=== PATIENT | male | born 1965 | race Caucasian/White ===

== ENCOUNTER 2018-09-11 17:41 | Inpatient (IN) ==
[~2018-09-11 17:41] MED LIST: ETOMIDATE 2 MG/ML 20 ML VIAL IV ONE; RAPID SEQUENCE INDUCTION BAG ONE; SUCCINYLCHOLINE CHLORIDE 20 MG/ML 10 ML VIAL IV ONE; VECURONIUM BROMIDE 10 MG VIAL IV ONE
[2018-09-11] MEDS ORDERED: SODIUM CHLORIDE 0.9% 500 ML IV SCH (17:45)
[2018-09-11] MEDS ORDERED: PROPOFOL IV EMULSION 10 MG/ML 20 ML VIAL IV ONE (17:47)
--- NOTE | 2018-09-11 17:56 | XRay Report ---
XR chest 1V portable CLINICAL HISTORY: Atypical chest pain COMPARISON STUDY: No previous studies for comparison. FINDINGS: The heart is borderline enlarged. There is no failure. There is no focal pulmonary consolid ation. There are no pleural effusions. Increased basilar markings are likely atelectatic[ IMPRESSION: No active disease in the chest. Electronically signed by: Bryan Caro M.D. 09/11/2018 5:55 PM
--- NOTE | 2018-09-11 18:26 | Emergency Department Note ---
Entered by Caitie Ramsey acting as a scribe for Matthew Feliciano DO History of Present Illness General Chief complaint: Arrhythmia/Palpitations Stated complaint: TACHYCARDIA Source: patient and EMS Mode of arrival: EMS History of Present Illness Onset (ago): hour(s) 3 Location: chest Pain Consistency: + other (episode ) Quality: + other (fluttering ) Relieved By: not by medication (150 and 300 dose of Amiodarone) and not by other (450ml fluid ) Treatments prior to arrival: other (450ml of fluid, 150 and 300 ml of Amiodarone ) The patient is a 53 year old male who presents to the ED via EMS with complaints of an episode of heart arrhythmia 3 hours prior to arrival. The patient states that his heart feels like it is fluttering very fast in his chest. The patient states that he was in the group home yard at 1430 when he first started noticing his heart was racing. The patient claims that he has had an EKG done before on his heart but is unsure of the results. The patient states that he has never had a cardiac catheterization or stress test done. The patient claims he used to be a heavy smoker and vape user but has since quit. The EMS report that the patient was given 400 ml of fluid and a 150 and a 300 dose of Amiodarone. 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 Home Medications Home Medications Medication Instructions Recorded Confirmed Type acetaminophen [Tylenol Extra 500 mg PO TID PRN 09/11/18 09/11/18 History Strength] albuterol sulfate 2 puff INHALATION TID PRN 09/11/18 09/11/18 History diclofenac sodium 75 mg PO BID 09/11/18 09/11/18 History furosemide [Lasix] 20 mg PO DAILY 09/11/18 09/11/18 History lisinopril 5 mg PO DAILY 09/11/18 09/11/18 History mirtazapine 30 mg PO HS 09/11/18 09/11/18 History nortriptyline 75 mg PO BID 09/11/18 09/11/18 History pravastatin 80 mg PO HS 09/11/18 09/11/18 History quetiapine 200 mg PO HS 09/11/18 09/11/18 History theophylline 450 mg PO BID 09/11/18 09/11/18 History warfarin [Coumadin] 7.5 mg PO HS 09/11/18 09/11/18 History Allergies Allergy/AdvReac Type Severity Reaction Status Date / Time No Known Allergies Allergy Unverified 09/11/18 19:24 Past Med/Surg History Medical History No known health problems Family History Other No significant family history Social History Preferred Language: Welsh Communication Ability: Effective [employer] Delivery Required: No Beliefs That Will Affect Care: None Current Living Situation: Other Current Living Situation Comment: [facility] inmate. Other Information That Helps Us Care for You: No Feels Safe at Home: Yes Safety Concerns: Feels Safe At This Time Smoking Status: Current every day smoker Tobacco Type: cigarettes and e- cigarettes Cigarettes Per Day: 10 Do You Dip or Chew Tobacco: No Hx Alcohol Use: No Hx Substance Use: No Review of Systems See HPI for pertinent positives & negatives. and A total of 10 systems reviewed and were otherwise negative Physical Exam Vital Signs Vital Signs - 24 hr 09/11/18 17:32 09/11/18 17:43 09/11/18 17:46 Temperature 36.9 C Temperature Source Oral Sepsis Recent Fever Within 48 Hours No Sepsis New/Unexplained Change in Mental Status No Sepsis Action Taken by Nursing No Action Required Oxygen Flow Rate - Titration 2 Pulse Rate 187 H 178 H 181 H Pulse Rate from SpO2 Sensor Respiratory Rate 20 Respiratory Effort / Characteristics Short of Breath Respiratory Pattern Regular Blood Pressure 100/90 Blood Pressure Mean 93 80 Pulse Oximetry 95 95 Oxygen Delivery Method Room Air Room Air Oxygen Flow Rate 2 09/11/18 17:50 09/11/18 17:52 09/11/18 17:55 Temperature Temperature Source Sepsis Recent Fever Within 48 Hours Sepsis New/Unexplained Change in Mental Status Sepsis Action Taken by Nursing Oxygen Flow Rate - Titration Pulse Rate 183 H 186 H 184 H Pulse Rate from SpO2 Sensor 178 H 181 H Respiratory Rate Respiratory Effort / Characteristics Respiratory Pattern Blood Pressure 100/90 105/76 Blood Pressure Mean 93 85 Pulse Oximetry 99 98 Oxygen Delivery Method Oxygen Flow Rate 2 09/11/18 18:00 09/11/18 18:01 09/11/18 18:02 Temperature Temperature Source Sepsis Recent Fever Within 48 Hours Sepsis New/Unexplained Change in Mental Status Sepsis Action Taken by Nursing Oxygen Flow Rate - Titration Pulse Rate 185 H 183 H 185 H Pulse Rate from SpO2 Sensor Respiratory Rate Respiratory Effort / Characteristics Respiratory Pattern Blood Pressure 98/90 L 96/75 L Blood Pressure Mean 92 82 Pulse Oximetry Oxygen Delivery Method Oxygen Flow Rate 09/11/18 18:06 09/11/18 18:10 09/11/18 18:11 Temperature Temperature Source Sepsis Recent Fever Within 48 Hours Sepsis New/Unexplained Change in Mental Status Sepsis Action Taken by Nursing Oxygen Flow Rate - Titration Pulse Rate 110 H 109 H 109 H Pulse Rate from SpO2 Sensor 111 H 109 H 109 H Respiratory Rate Respiratory Effort / Characteristics Respiratory Pattern Blood Pressure 141/99 H 168/118 H Blood Pressure Mean 113 134 Pulse Oximetry 100 100 100 Oxygen Delivery Method Oxygen Flow Rate 09/11/18 18:15 09/11/18 18:20 09/11/18 18:30 Temperature Temperature Source Sepsis Recent Fever Within 48 Hours Sepsis New/Unexplained Change in Mental Status Sepsis Action Taken by Nursing Oxygen Flow Rate - Titration Pulse Rate 106 H 104 H 100 H Pulse Rate from SpO2 Sensor 106 H 104 H 100 H Respiratory Rate Respiratory Effort / Characteristics Respiratory Pattern Blood Pressure 155/109 H 150/103 H Blood Pressure Mean 124 118 Pulse Oximetry 99 100 100 Oxygen Delivery Method Oxygen Flow Rate 09/11/18 18:40 09/11/18 18:45 09/11/18 18:50 Temperature Temperature Source Sepsis Recent Fever Within 48 Hours Sepsis New/Unexplained Change in Mental Status Sepsis Action Taken by Nursing Oxygen Flow Rate - Titration Pulse Rate 97 H 97 H 96 H Pulse Rate from SpO2 Sensor 98 H 99 H 96 H Respiratory Rate Respiratory Effort / Characteristics Respiratory Pattern Blood Pressure 146/98 H Blood Pressure Mean 114 Pulse Oximetry 100 100 100 Oxygen Delivery Method Oxygen Flow Rate 2 09/11/18 19:00 09/11/18 19:01 09/11/18 19:10 Temperature Temperature Source Sepsis Recent Fever Within 48 Hours Sepsis New/Unexplained Change in Mental Status Sepsis Action Taken by Nursing Oxygen Flow Rate - Titration Pulse Rate 93 H 92 H 94 H Pulse Rate from SpO2 Sensor 93 H 93 H 94 H Respiratory Rate Respiratory Effort / Characteristics Respiratory Pattern Blood Pressure 149/103 H Blood Pressure Mean 118 Pulse Oximetry 100 100 100 Oxygen Delivery Method Oxygen Flow Rate 09/11/18 19:15 09/11/18 19:20 07/23/19 19:30 Temperature Temperature Source Sepsis Recent Fever Within 48 Hours Sepsis New/Unexplained Change in Mental Status Sepsis Action Taken by Nursing Oxygen Flow Rate - Titration Pulse Rate 91 H 90 86 Pulse Rate from SpO2 Sensor 90 91 H 87 Respiratory Rate Respiratory Effort / Characteristics Respiratory Pattern Blood Pressure 149/103 H 152/104 H Blood Pressure Mean 118 120 Pulse Oximetry 100 100 100 Oxygen Delivery Method Oxygen Flow Rate 09/11/18 19:31 09/11/18 19:40 Temperature Temperature Source Sepsis Recent Fever Within 48 Hours Sepsis New/Unexplained Change in Mental Status Sepsis Action Taken by Nursing Oxygen Flow Rate - Titration Pulse Rate 86 91 H Pulse Rate from SpO2 Sensor 86 94 H Respiratory Rate Respiratory Effort / Characteristics Respiratory Pattern Blood Pressure Blood Pressure Mean Pulse Oximetry 100 97 Oxygen Delivery Method Oxygen Flow Rate GENERAL: Patient is awake and alert. He is very anxious appearing and appears to be uncomfortable. EYES: The conjunctivae are clear. The pupils are round and reactive. EARS, NOSE, MOUTH AND THROAT: The nose is without any evidence of any deformity. Mucous membranes are moist tongue is midline NECK: The neck is nontender and supple. RESPIRATORY: Normal respiratory effort is noted there is no evidence of wheezing rhonchi or rales CARDIOVASCULAR: Tachycardic rate with regular rhythm was noted. No definite murmur could be heard. GASTROINTESTINAL: The abdomen is soft. Bowel sounds are present in all quadrants. Abdomen is nontender MUSCULOSKELETAL/EXTREMITIES: There is no evidence of gross deformity full range of motion is noted in the hips and shoulders SKIN: There is no obvious evidence of any rash. There are no petechiae, pallor or cyanosis noted. NEUROLOGIC: Patient is awake alert and oriented x3 strength is symmetric patellar reflexes are 2+ bilaterally Procedures Free Text Procedures Procedural Sedation Indication Wide complex tachycardia. Total time: 12 minutes. Written consent was obtained after the risks and benefits were explained to the patient, including, but not limited to aspiration, allergic reaction, breathing difficulties, cardiac complications, vomiting, pain, event recall, bleeding, and/or infection. Pre-sedation examination and paperwork completed. The patient was on 100% oxygen via NRB prior to the procedure. Continous end tidal CO2 monitoring, pulse oximetry, and cardiac monitoring were utilized. Suction, airway equipment, medications, respiratory equipment, and appropriate personnel were prepared prior to the initiation of the procedure. A time out was taken. Sedation was achieved utilizing 25 mg of Ketamine and 125mg of Propofol. After I observed the patient had reached the appropriate level of sedation the main procedure was performed without complication. Sedation was discontinued and the monitoring continued. The patient recovered quickly from the effects of the medication without complication or adverse event. Course 174: Past medical records reviewed. The patient was evaluated in room B1. A complete history and physical exam was performed. 1819: I reevaluated the patient at this time and he is resting comfortably. 1904: I discussed the patients case with Kandace Gilliland. He agreed to evaluate the patient for further management. Consultations Consultation #1: I discussed the patients case with Kandace Gilliland. He agreed to evaluate the patient for further management. Time: 19:05 Administered Medications Amiodarone HCl/Dextrose (Nexterone / D5w) 360 mg in 200 mls @ 33.3 mls/hr IV . Q6H1M ILSA Stop: 09/12/18 00:30 Last Admin: 09/11/18 20:30 Dose: 33.3 mls/hr Documented by: [id number] Cosigned by: [id number] Sodium Chloride (Nss) 500 mls @ 80 mls/hr IV .Q6H15M LISA Stop: 10/11/18 21:29 Last Admin: 09/11/18 22:02 Dose: 80 mls/hr Documented by: [id number] Discontinued Medications Sodium Chloride (Nss) 500 mls @ 999 mls/hr IV .Q31M LISA Stop: 09/11/18 18:15 Last Infusion: 09/11/18 18:49 Dose: 0 mls/hr Documented by: [id number] Admin: 09/11/18 18:15 Dose: 999 mls/hr Documented by: [id number] Miscellaneous () Confirm Administered Dose 1 ea .ROUTE .STK-MED ONE Stop: 09/11/18 17:41 Last Admin: 09/11/18 18:15 Dose: 1 ea Documented by: [id number] Propofol (Diprivan) Confirm Administered Dose 200 mg IV .STK-MED ONE Stop: 09/11/18 17:48 Last Admin: 09/11/18 18:15 Dose: 125 mg Documented by: [id number] Cosigned by: [id number] Medical Decision Making Differential Diagnosis Differential diagnosis: Etiologies such as shingles, musculoskeletal pain, pericarditis, myocarditis, cardiac ischemia, pericardial tamponade, pneumonia, pneumothorax, pleural effusion, hemothorax, pleurisy, aortic pathology, pulmonary embolism, intra-abdominal process, as well as others were considered. Medical Records Attestation: I reviewed the patient's medical records. Home Medications Current Medication List: was personally reviewed by me Laboratory Data Attestation: I reviewed the patient's lab results. Result diagrams: 09/11/18 17:45 09/11/18 17:45 Lab Results 09/11/18 09/11/18 09/11/18 Range/Units 17:45 17:45 17:45 WBC 15.68 H (4.8-10.8) K/uL RBC 5.23 (4.7-6.1) M/uL Hgb 16.8 (14.0-18.0) g/dL Hct 48.4 (42-52) % MCV 92.5 (80-100) fL MCH 32.1 (25-34) pg MCHC 34.7 (32-36) g/dL RDW Std Deviation 42.5 (36.4-46.3) fL RDW Coeff of Jeb 12.5 (11.5-14.5) % Plt Count 241 (130-400) K/uL MPV 10.8 H (7.4-10.4) fL Immature Gran % (Auto) 0.6 % Neut % (Auto) 65.6 % Lymph % (Auto) 24.3 % [place] % (Auto) 7.2 % Eos % (Auto) 1.3 % Baso % (Auto) 1.0 % Immature Gran # (Auto) 0.09 H (0.00-0.02) K/uL Neut # (Auto) 10.29 H (1.4-6.5) K/uL Lymph # (Auto) 3.81 H (1.2-3.4) K/uL [place] # (Auto) 1.13 H (0.11-0.59) K/uL Eos # (Auto) 0.21 (0-0.5) K/uL Baso # (Auto) 0.15 (0-0.2) K/uL PT 30.9 H (9.0-12.0) Seconds INR 3.3 H (0.9-1.1) APTT 44.7 H (21.0-31.0) Seconds PTT Ratio 1.6 Sodium 140 (136-145) mmol/L Potassium 4.0 (3.5-5.1) mmol/L Chloride 107 (98-107) mmol/L Carbon Dioxide 23 (21-32) mmol/L Anion Gap 9.0 (3-11) BUN 17 (7-18) mg/dl Creatinine 1.76 H (0.6-1.4) mg/dl Est Cr Clr Drug Dosing 59.1 ml/min Est GFR ( Amer) 50.4 Est GFR (Non-Af Amer) 43.5 BUN/Creatinine Ratio 9.4 L (10-20) Glucose 104 H (70-99) mg/dl Calcium 8.8 (8.5-10.1) mg/dl Magnesium 2.1 (1.8-2.4) mg/dl Total Bilirubin 0.5 (0.2-1) mg/dl AST 33 (15-37) U/L ALT 63 (12-78) U/L Alkaline Phosphatase 104 (45-117) U/L Troponin I 0.042 (0-0.045) ng/ml Total Protein 7.0 (6.4-8.2) gm/dl Albumin 3.9 (3.4-5.0) gm/dl Globulin 3.1 (2.5-4.0) gm/dl Albumin/Globulin Ratio 1.3 (0.9-2) TSH 2.560 (0.300-4.500) uIu/ml Specimen Hemolysis Theophylline (10-20) mcg/ml 09/11/18 Range/Units 17:45 WBC (4.8-10.8) K/uL RBC (4.7-6.1) M/uL Hgb (14.0-18.0) g/dL Hct (42-52) % MCV (80-100) fL MCH (25-34) pg MCHC (32-36) g/dL RDW Std Deviation (36.4-46.3) fL RDW Coeff of Jeb (11.5-14.5) % Plt Count (130-400) K/uL MPV (7.4-10.4) fL Immature Gran % (Auto) % Neut % (Auto) % Lymph % (Auto) % [place] % (Auto) % Eos % (Auto) % Baso % (Auto) % Immature Gran # (Auto) (0.00-0.02) K/uL Neut # (Auto) (1.4-6.5) K/uL Lymph # (Auto) (1.2-3.4) K/uL [place] # (Auto) (0.11-0.59) K/uL Eos # (Auto) (0-0.5) K/uL Baso # (Auto) (0-0.2) K/uL PT (9.0-12.0) Seconds INR (0.9-1.1) APTT (21.0-31.0) Seconds PTT Ratio Sodium (136-145) mmol/L Potassium (3.5-5.1) mmol/L Chloride (98-107) mmol/L Carbon Dioxide (21-32) mmol/L Anion Gap (3-11) BUN (7-18) mg/dl Creatinine (0.6-1.4) mg/dl Est Cr Clr Drug Dosing ml/min Est GFR ( Amer) Est GFR (Non-Af Amer) BUN/Creatinine Ratio (10-20) Glucose (70-99) mg/dl Calcium (8.5-10.1) mg/dl Magnesium (1.8-2.4) mg/dl Total Bilirubin (0.2-1) mg/dl AST (15-37) U/L ALT (12-78) U/L Alkaline Phosphatase (45-117) U/L Troponin I (0-0.045) ng/ml Total Protein (6.4-8.2) gm/dl Albumin (3.4-5.0) gm/dl Globulin (2.5-4.0) gm/dl Albumin/Globulin Ratio (0.9-2) TSH (0.300-4.500) uIu/ml Specimen Hemolysis Theophylline 2 L (10-20) mcg/ml Imaging Data Radiologist's Impression: Radiology results as stated below per my review and the radiologist's interpretation: XR chest 1V portable CLINICAL HISTORY: Atypical chest pain COMPARISON STUDY: No previous studies for comparison. FINDINGS: The heart is borderline enlarged. There is no failure. There is no f ocal pulmonary consolidation. There are no pleural effusions. Increased basilar markings are likely atelectatic[ IMPRESSION: No active disease in the chest. Electronically signed by: Bryan Caro M.D. 09/11/2018 5:55 PM ECG Data Attestation: I personally reviewed and interpreted this ECG as follows: Indication: other (Arrhythmia ) Rate (beats per minute): 180 Rhythm: v-tach (wide complex tach) and other Findings: + other (AV dissociation noted) Comparison ECG Date: from (09/11/2018) Change: the following changes noted (sinus tachycardia, 110bpm, no ectopy, lateral ST depression noted) Blood Pressure Blood Pressure Findings: Elevated blood pressure Blood Pressure Disposition: Referred to patients primary care provider JUANA Narrative The patient is a 53-year-old male who presented to the emergency department for an evaluation of palpitations and chest pain. Patient currently lives at [facility] and went to the [facility] because he was having palpitations and chest discomfort. At that time he had an EKG done which they thought was consistent with atrial fibrillation. The ambulance was called and when the clinical pharmacologist evaluated the patient he realized the patient was in wide-complex tachycardia. The patient was treated with IV fluids and IV amiodarone prior to arrival. There is no significant change in his wide-complex tachycardia. Upon arrival to the emergency department the patient was hypotensive and having significant symptoms. The patient was also on multiple medications which made me concerned about starting him on another antidysrhythmic. For this reason the decision was made to do synchronized cardioversion on the patient. The patient was sedated using ketamine and propofol. He was cardioverted using 100 J with the biphasic defibrillator. The patient tolerated this procedure quite well. He was cardioverted successfully to normal sinus rhythm. The patient states he had no similar symptoms in the past. I discussed the patient's laboratory and radiographic studies with him. He was reevaluated multiple times. On subsequent reevaluation he was feeling much better. I discussed his case with the on-call [facility] hospitalist. They have agreed to evaluate the patient in the emergency department for further management disposition. Impression & Plan Ventricular tachycardia, Palpitations, Chest pain, Hypotension Critical Care Time Critical Care Time: Yes Total Critical Care Time: 60 I have personally spent greater than 60 minutes of critical care time in the direct management of this patient. This includes bedside care, interpretation of diagnostic studies, and testing, discussion with consultants, patient, and family members, and other required patient management activities. This 60 minutes is in excess of all separately billable procedures. Discharge Plan Visit Data *Final* Discharge Date/Time: 09/11/18 20:11 Chief Complaint: Arrhythmia/Palpitations Stated Complaint: TACHYCARDIA ED Provider: Matthew Feliciano Discharge Problem: Ventricular tachycardia, Palpitations, Chest pain, Hypotension Patient Disposition: Admitted As Inpatient Discharge Instructions Interventions: ED Discharge Assessment Last Done: 09/11/18 20:11 The scribe's documentation has been prepared under my direction and personally reviewed by me in its entirety. I confirm that the note above accurately reflects all work, treatment, procedures, and medical decision making performed by me.
[2018-09-11 18:27] LABS: Basophils # (auto) 0.15 K/uL (0-0.2); Eosinophils # (auto) 0.21 K/uL (0-0.5); Eosinophils % (auto) 1.3 %; Hematocrit (blood only) 48.4 % (42-52); Hemoglobin 16.8 g/dL (14.0-18.0); Immature Granulocytes # (auto) 0.09 K/uL (0.00-0.02); Immature Granulocytes % (auto) 0.6 %; Lymphocytes # (auto) 3.81 K/uL (1.2-3.4); Lymphocytes % (auto) 24.3 %; Mean Corpuscular Hgb Conc 34.7 g/dL (32-36); Mean Corpuscular Volume 92.5 fL (80-100); Mean Platelet Volume 10.8 fL (7.4-10.4); Monocytes # (auto) 1.13 K/uL (0.11-0.59); Monocytes % (auto) 7.2 %; Neutrophils # (auto) 10.29 K/uL (1.4-6.5); Neutrophils % (auto) 65.6 %; Platelet Count 241 K/uL (130-400); RDW Coefficient of Variation 12.5 % (11.5-14.5); RDW Standard Deviation 42.5 fL (36.4-46.3); Red Blood Count 5.23 M/uL (4.7-6.1); White Blood Count 15.68 K/uL (4.8-10.8)
[2018-09-11] MEDS ORDERED: AMIODARONE / D5W 360 MG/200 ML BAG IV SCH (18:30)
[2018-09-11 18:40] LABS: INR 3.3 (0.9-1.1); Partial Thromboplastin Ratio 1.6; Partial Thromboplastin Time 44.7 Seconds (21.0-31.0); Prothrombin Time 30.9 Seconds (9.0-12.0)
[2018-09-11 18:46] LABS: Albumin Level 3.9 gm/dl (3.4-5.0); BUN Creatinine Ratio 9.4 (10-20); Calcium 8.8 mg/dl (8.5-10.1); Creatinine Clr Calc Pharmacy 59.1 ml/min; Est GFR (African American) 50.4; Est GFR (Non-African American) 43.5; Magnesium 2.1 mg/dl (1.8-2.4)
[2018-09-11 18:57] LABS: Albumin Globulin Ratio 1.3 (0.9-2); Bilirubin,Total 0.5 mg/dl (0.2-1); Globulin 3.1 gm/dl (2.5-4.0); Troponin I 0.042 ng/ml (0-0.045)
--- NOTE | 2018-09-11 19:56 | History & Physical Report ---
Date of Service September 11, 2018 Assessment & Plan (1) Ventricular tachycardia: Pt is a 53yo with a PMHx significant for HTN, HLD and COPD on theophylline and depression/anxiety who presents with sustained ventricular tachycardia. Ventricular Tachycardia -Pt currently in sinus tachycardia after cardioversion -Sustained v tach likely secondary to theophylline use, though level subtherapeutic -EKG on admission with sustained v tach, after cardioversion indicates sinus tach -Continue amiodarone drip. -will start cardizem 30mg QID in the AM -will admit to PCU/tele -will trend trops -will get an echo to determine whether underlying cardiomyopathy -will consult cardiology -will hold theophylline as likely contributory. Will hold quetiapine due to potential to prolong qtc, also hold nortriptyline -will also hold PO NSAID diclofenac, given possibility of heart failure/unsure of EF -urine tox as source of other possible causes, pending KIMBERLEE -Pt with likely acute KIMBERLEE -Unsure of whether this is his baseline; can work to obtain [facility] records -If KIMBERLEE, low CV output during this episode likely contributory -continue gentle fluids @ 80 since not sure of pt's EF and concern of overloading with fluid -hold [employer] lisinopril and Lasix Hx of thrombus -Hold coumadin tonight given supratherapeutic INR of 3.3 -will work to reassess need through obtaining records 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 gentle fluids DVT Prophylaxis: currently supratherapeutic on warfarin CODE STATUS: FULL CODE Dispo: PCU with tele History of Present Illness Primary Care Provider: Juliette Barnett MD Pt is a 53yo with a PMHx significant for HTN, HLD and COPD on theophylline who presents with sustained ventricular tachycardia. Mr. Zhong states that he was sitting talking to a friend at about 2:30pm when he felt this fluttery feeling in his chest. States he felt uncomfortable at that time but later developed chest tightness associated with difficulty breathing. He at that time alerted [facility] staff and he was found to be in ventricular tachycardia and transported to the ED. En route to the ED he received multiple doses of amiodarone which did not convert his arrythmia. He was cardioverted in the ED. ED Course: Cardioversion after administration of 150mg and 300mg amiodarone and 400ml fluid bolus prior to arrival. Fluids and amiodarone drip started in ED. 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 Also states that he was a heavy smoker of 2ppd for at least 20 years. No current use of alcohol or drugs, states his tox screens have been clean for the last 11 years while incarcerated. Meds: theophyline, lisinopril, diclofenac, pravastatin, lasix Allergies Allergy/AdvReac Type Severity Reaction Status Date / Time No Known Allergies Allergy Unverified 09/11/18 19:24 Home Medications Home Medications Medication Instructions Recorded Confirmed Type acetaminophen [Tylenol Extra 500 mg PO TID PRN 09/11/18 09/11/18 History Strength] albuterol sulfate 2 puff INHALATION TID PRN 09/11/18 09/11/18 History diclofenac sodium 75 mg PO BID 09/11/18 09/11/18 History furosemide [Lasix] 20 mg PO DAILY 09/11/18 09/11/18 History lisinopril 5 mg PO DAILY 09/11/18 09/11/18 History mirtazapine 30 mg PO HS 09/11/18 09/11/18 History nortriptyline 75 mg PO BID 09/11/18 09/11/18 History pravastatin 80 mg PO HS 09/11/18 09/11/18 History quetiapine 200 mg PO HS 09/11/18 09/11/18 History theophylline 450 mg PO BID 09/11/18 09/11/18 History warfarin [Coumadin] 7.5 mg PO HS 09/11/18 09/11/18 History Past Med/Surg History Medical History No known health problems Family History Other No significant family history Social History Preferred Language: Spanish Communication Ability: Effective Wedger Machine Required: No Beliefs That Will Affect Care: None Current Living Situation: Other Current Living Situation Comment: [facility] inmate. Other Information That Helps Us Care for You: No Feels Safe at Home: Yes Safety Concerns: Feels Safe At This Time Smoking Status: Current every day smoker Tobacco Type: cigarettes and e- cigarettes Cigarettes Per Day: 10 Do You Dip or Chew Tobacco: No Hx Alcohol Use: No Hx Substance Use: No Review of Systems Constitutional: + sweats and + fatigue; no fever and no chills Eyes: no worsening vision Ear, Nose, Mouth, Throat: no dizziness Respiratory: + dyspnea Cardiovascular: + chest pain, + radiating jaw, neck or arm pain and + palpitations; no lightheadedness Gastrointestinal: no abdominal pain, no nausea, no vomiting, no constipation and no diarrhea/loose stools Musculoskeletal: + joint pain Neurologic: no dizziness and no headache(s) Psychiatric: no confusion and no substance abuse Endocrine: + fatigue Physical Exam Constitutional: WD/WN, vitals as above Eyes: PERRL and EOM intact bilaterally ENMT: external ear and nose normal, oropharynx normal Neck: normal visual inspection Respiratory: normal respiratory effort, lungs clear to auscultation able to speak in complete sentences Auscultation: no crackles and no wheezes Cardiovascular: Rate/Rhythm: regular rhythm and + tachycardic Extremities: no calf tenderness and no edema Gastrointestinal (Abdomen): Inspection/Auscultation: abdomen normal to inspection Percussion/Palpation: abdomen nontender and no guarding Musculoskeletal: no cyanosis or clubbing, extremities motor strength 5/5 Skin: no rashes, warm and dry Neurologic: PERRL, EOMI, accommodation nl, no face palsy, no dysarthria Psychiatric: A+Ox3, euthymic affect Results & Data Vital Signs (Past 12 Hours) Vital Signs Temp Pulse Resp BP Pulse Ox 09/11/18 19:40 91 H 97 09/11/18 19:31 86 100 09/11/18 19:30 86 152/104 H 100 09/11/18 19:20 90 100 09/11/18 19:15 91 H 149/103 H 100 09/11/18 19:10 94 H 100 09/11/18 19:01 92 H 100 09/11/18 19:00 93 H 149/103 H 100 09/11/18 18:50 96 H 100 09/11/18 18:45 97 H 146/98 H 100 09/11/18 18:40 97 H 100 09/11/18 18:30 100 H 150/103 H 100 09/11/18 18:20 104 H 100 09/11/18 18:15 106 H 155/109 H 99 09/11/18 18:11 109 H 100 09/11/18 18:10 109 H 168/118 H 100 09/11/18 18:06 110 H 141/99 H 100 09/11/18 18:02 185 H 09/11/18 18:01 183 H 96/75 L 09/11/18 18:00 185 H 98/90 L 09/11/18 17:55 184 H 105/76 98 09/11/18 17:52 186 H 100/90 99 09/11/18 17:50 183 H 09/11/18 17:46 181 H 09/11/18 17:43 178 H 95 09/11/18 17:32 36.9 C 187 H 20 100/90 95 Laboratory Results Laboratory Results - last 24 hr 09/11/18 09/11/18 09/11/18 17:45 17:45 17:45 WBC 15.68 H RBC 5.23 Hgb 16.8 Hct 48.4 MCV 92.5 MCH 32.1 MCHC 34.7 RDW Std Deviation 42.5 RDW Coeff of Jeb 12.5 Plt Count 241 MPV 10.8 H Immature Gran % (Auto) 0.6 Neut % (Auto) 65.6 Lymph % (Auto) 24.3 [place] % (Auto) 7.2 Eos % (Auto) 1.3 Baso % (Auto) 1.0 Immature Gran # (Auto) 0.09 H Neut # (Auto) 10.29 H Lymph # (Auto) 3.81 H [place] # (Auto) 1.13 H Eos # (Auto) 0.21 Baso # (Auto) 0.15 PT 30.9 H INR 3.3 H APTT 44.7 H PTT Ratio 1.6 Sodium 140 Potassium 4.0 Chloride 107 Carbon Dioxide 23 Anion Gap 9.0 BUN 17 Creatinine 1.76 H Est Cr Clr Drug Dosing 59.1 Est GFR ( Amer) 50.4 Est GFR (Non-Af Amer) 43.5 BUN/Creatinine Ratio 9.4 L Glucose 104 H Calcium 8.8 Magnesium 2.1 Total Bilirubin 0.5 AST 33 ALT 63 Alkaline Phosphatase 104 Troponin I 0.042 Total Protein 7.0 Albumin 3.9 Globulin 3.1 Albumin/Globulin Ratio 1.3 TSH 2.560 Specimen Hemolysis Urine Color Urine Appearance Urine pH Ur Specific [place] Urine Protein Urine Glucose (UA) Urine Ketones Urine Blood Urine Nitrite Urine Bilirubin Urine Urobilinogen Ur Leukocyte Esterase Urine Opiates Screen Ur Methadone, Qual Urine Barbiturates Ur Phencyclidine (PCP) U Amphetamin/Meth Scrn MDMA (Ecstasy) Screen U Benzodiazepines Scrn Ur Cocaine Metabolite Theophylline U Marijuana (THC) Screen 09/11/18 09/11/18 09/11/18 17:45 19:48 19:48 WBC RBC Hgb Hct MCV MCH MCHC RDW Std Deviation RDW Coeff of Jeb Plt Count MPV Immature Gran % (Auto) Neut % (Auto) Lymph % (Auto) [place] % (Auto) Eos % (Auto) Baso % (Auto) Immature Gran # (Auto) Neut # (Auto) Lymph # (Auto) [place] # (Auto) Eos # (Auto) Baso # (Auto) PT INR APTT PTT Ratio Sodium Potassium Chloride Carbon Dioxide Anion Gap BUN Creatinine Est Cr Clr Drug Dosing Est GFR ( Amer) Est GFR (Non-Af Amer) BUN/Creatinine Ratio Glucose Calcium Magnesium Total Bilirubin AST ALT Alkaline Phosphatase Troponin I Total Protein Albumin Globulin Albumin/Globulin Ratio TSH Specimen Hemolysis Urine Color Pending Urine Appearance Pending Urine pH Pending Ur Specific [place] Pending Urine Protein Pending Urine Glucose (UA) Pending Urine Ketones Pending Urine Blood Pending Urine Nitrite Pending Urine Bilirubin Pending Urine Urobilinogen Pending Ur Leukocyte Esterase Pending Urine Opiates Screen Pending Ur Methadone, Qual Pending Urine Barbiturates Pending Ur Phencyclidine (PCP) Pending U Amphetamin/Meth Scrn Pending MDMA (Ecstasy) Screen Pending U Benzodiazepines Scrn Pending Ur Cocaine Metabolite Pending Theophylline 2 L U Marijuana (THC) Screen Pending Medications Administered Home Medications acetaminophen [Tylenol Extra Strength] 500 mg PO TID PRN 09/11/18 [History Confirmed 09/11/18] albuterol sulfate 2 puff INHALATION TID PRN 09/11/18 [History Confirmed 09/11/18] diclofenac sodium 75 mg PO BID 09/11/18 [History Confirmed 09/11/18] furosemide [Lasix] 20 mg PO DAILY 09/11/18 [History Confirmed 09/11/18] lisinopril 5 mg PO DAILY 09/11/18 [History Confirmed 09/11/18] mirtazapine 30 mg PO HS 09/11/18 [History Confirmed 09/11/18] nortriptyline 75 mg PO BID 09/11/18 [History Confirmed 09/11/18] pravastatin 80 mg PO HS 09/11/18 [History Confirmed 09/11/18] quetiapine 200 mg PO HS 09/11/18 [History Confirmed 09/11/18] theophylline 450 mg PO BID 09/11/18 [History Confirmed 09/11/18] warfarin [Coumadin] 7.5 mg PO HS 09/11/18 [History Confirmed 09/11/18] Active Medications Amiodarone HCl/Dextrose (Nexterone / D5w) 360 mg in 200 mls @ 33.3 mls/hr IV .Q6H1M LISA Stop: 09/12/18 00:30 Supervising Physician Co-Signing Physician Notes Attending addendum: I have physically seen this patient, have supervised the medical residents activities, and agree with the H&P unless as otherwise noted. Assessment and Plan: Ventricular tachycardia/hypertension- The patient will be admitted to telemetry for serial cardiac enzymes, serial EKG's, cardiac rhythm monitoring and a 2-D echocardiogram with Dopplers. Received amiodarone 150 bolus, then 300 bolus IV in the field followed by amnio drip. Status post synchronized cardioversion in the ED. Continue patient on amiodarone drip. Add Cardizem 30 mg p.o. every 6 hours. For tonight, hold nortriptyline, Seroquel and theophylline. Theophylline level is low normal at this time, and should not be restarted. Continue warfarin, mildly supratherapeutic INR at 3.3 Consult cardiology. Renal insufficiency- No baseline For comparison. INR 1.76 upon admission. IV fluids. Hold lisinopril and furosemide Recheck laboratories in a.m. Remainder of orders and laboratories as noted. PG Care Time/CCT Total # of Minutes Spent Total Time Spent with Patient: Total time spent is greater than 50% in coordination of care (as documented) at patient's floor/unit and/or counseling patient:
[2018-09-11 20:24] LABS: Appearance Urine Clear (Clear); Bilirubin Urine Negative (Negative); Blood Urine Negative (Negative); Color Urine Yellow; Glucose Urine UA Negative (Negative); Ketones Urine Negative (Negative); Leukocyte Esterase Urine Negative (Negative); Nitrite Urine Negative (Negative); Protein Urine Negative (Negative); Specific Gravity Urine 1.009 (1.000-1.030); Urobilinogen Urine Negative (Negative)
[2018-09-11 20:52] LABS: Amphetamines+Metham, Urine Neg (Neg); Barbiturates, Urine Neg (Neg); Benzodiazepine, Urine Neg (Neg); Cocaine, Urine Neg (Neg); MDMA (Ecstacy), Urine Neg (Neg); Methadone, Urine Neg (Neg); Opiate, Urine Neg (Neg); Phencyclidine, Urine Neg (Neg)
[2018-09-11] MEDS ORDERED: ACETAMINOPHEN 500 MG TAB PO PRN (21:41)
[2018-09-11] MEDS ORDERED: LEVALBUTEROL HCL 0.63 MG/3 ML NEB NEB PRN (21:51)
[2018-09-11] MEDS: SODIUM CHLORIDE 0.9% 500 ML IV SCH (22:02)
--- NOTE | 2018-09-11 22:40 | Post Anesthesia Assessment ---
Date of Service September 11, 2018 Post Sedation Assessment Vital Signs Temp Pulse Pulse Resp BP BP Pulse Ox 09/11/18 23:17 36.8 C 81 20 110/82 98 09/11/18 20:30 36.9 C 83 82 22 163/109 H 98 09/11/18 20:11 85 20 157/109 H 100 09/11/18 19:40 91 H 97 09/11/18 19:31 86 100 09/11/18 19:30 86 152/104 H 100 09/11/18 19:20 90 100 09/11/18 19:15 91 H 149/103 H 100 09/11/18 19:10 94 H 100 09/11/18 19:01 92 H 100 09/11/18 19:00 93 H 149/103 H 100 09/11/18 18:50 96 H 100 09/11/18 18:45 97 H 146/98 H 100 09/11/18 18:40 97 H 100 09/11/18 18:30 100 H 150/103 H 100 09/11/18 18:20 104 H 100 09/11/18 18:15 106 H 155/109 H 99 09/11/18 18:11 109 H 100 09/11/18 18:10 109 H 168/118 H 100 09/11/18 18:06 110 H 141/99 H 100 09/11/18 18:02 185 H 09/11/18 18:01 183 H 96/75 L 09/11/18 18:00 185 H 98/90 L 09/11/18 17:55 184 H 105/76 98 09/11/18 17:52 186 H 100/90 99 09/11/18 17:50 183 H 09/11/18 17:46 181 H 09/11/18 17:43 178 H 95 09/11/18 17:32 36.9 C 187 H 20 100/90 95 Post Sedation Plan On clinical assessment, the patient appears to have tolerated the sedation without complications. Patient is recovering as anticipated. Patient will continue to be monitored by nursing and may be discharged when sedation discharge criteria are met per below protocol. Upon Completions of procedure and additional 15 minutes continue every 5 minute vital signs and the P.A.R. score; then discharge to a Phase I or Fast Track to Phase II per the following guidelines: * Discharge Patient to appropriate Phase II area if PAR is 8 or greater or return to pre- procedure baseline. The post - procedure orders will be as directed. * If PAR score is less than 8 or not return to pre-procedure baseline then patient will follow Phase I monitoring till PAR is reached for Phase II. The Phase I may be done in procedure room or may call to secure a Phase I area. * If naloxone or flumazenil are used for reversal, hold in Phase I for continued monitoring from when last reversal dose was given for a minimum of 60 minutes or longer pending the nurse and/or physician discretion of patient condition before discharge to Phase II. Please call the Sedation Physician to re-evaluate and complete post-note for discharge to Phase II area. Do NOT discharge from procedure sedation or Phase 1 until post- sedation evaluation note is complete by procedure /sedation MD Sedation Discharge Instructions to be given to the patient at discharge to home.
--- NOTE | 2018-09-11 22:40 | Pre Anesthesia Assessment ---
Date of Service September 11, 2018 Pre Sedation Assessment Vital Signs Temp Pulse Pulse Resp BP BP Pulse Ox 09/11/18 23:17 36.8 C 81 20 110/82 98 09/11/18 20:30 36.9 C 83 82 22 163/109 H 98 09/11/18 20:11 85 20 157/109 H 100 09/11/18 19:40 91 H 97 09/11/18 19:31 86 100 09/11/18 19:30 86 152/104 H 100 09/11/18 19:20 90 100 09/11/18 19:15 91 H 149/103 H 100 09/11/18 19:10 94 H 100 09/11/18 19:01 92 H 100 09/11/18 19:00 93 H 149/103 H 100 09/11/18 18:50 96 H 100 09/11/18 18:45 97 H 146/98 H 100 09/11/18 18:40 97 H 100 09/11/18 18:30 100 H 150/103 H 100 09/11/18 18:20 104 H 100 09/11/18 18:15 106 H 155/109 H 99 09/11/18 18:11 109 H 100 09/11/18 18:10 109 H 168/118 H 100 09/11/18 18:06 110 H 141/99 H 100 09/11/18 18:02 185 H 09/11/18 18:01 183 H 96/75 L 09/11/18 18:00 185 H 98/90 L 09/11/18 17:55 184 H 105/76 98 09/11/18 17:52 186 H 100/90 99 09/11/18 17:50 183 H 09/11/18 17:46 181 H 09/11/18 17:43 178 H 95 09/11/18 17:32 36.9 C 187 H 20 100/90 95 Pre-Sedation Airway Assessment Smoking Status: Current every day smoker Notes The planned sedation has been discussed with the patient. Informed Consent was obtained. I have identified the patient, determined the appropriateness of sedation and have assessed the patient immediately prior to the procedure. All medicine(s) and interventions are by my order.
[2018-09-12] MEDS ORDERED: AMIODARONE IV BOLUS / DRIP IV STA (00:43)
[2018-09-12] MEDS ORDERED: AMIODARONE / D5W 360 MG/200 ML BAG IV SCH ×2 (00:45→02:30)
[2018-09-12] MEDS: AMIODARONE / D5W 360 MG/200 ML BAG IV SCH ×3 (01:01→23:48)
[2018-09-12] MEDS ORDERED: ACETAMINOPHEN 500 MG TAB PO PRN (01:12)
[2018-09-12] MEDS: MIRTAZAPINE TAB 15 MG TAB PO SCH ×2 (02:14→21:55)
[2018-09-12] MEDS: SODIUM CHLORIDE 0.9% 500 ML IV SCH ×4 (04:19→21:52)
[2018-09-12 06:19] LABS: INR 2.6 (0.9-1.1); Prothrombin Time 24.6 Seconds (9.0-12.0)
[2018-09-12] MEDS: dilTIAZem HCL 30 MG TAB PO SCH ×2 (09:23→12:11)
--- NOTE | 2018-09-12 10:13 | Cardiology Consultation ---
Date of Consultation September 12, 2018 Assessment & Plan (1) Ventricular tachycardia: The presenting rhythm appears consistent with sustained monomorphic ventricular tachycardia. While the QRS duration is not markedly prolonged, but does appear to be some element of AV dissociation on his EKG and telemetry and the intrinsic cord deflection seems prolonged. The heart rate is also not characteristic of an atrial flutter although he does appear to have the substrate for atrial flutter given his pulmonary disease. The morphology of the arrhythmia would suggest an outflow tract source given the inferior axis and left bundle morphology. Some forms of outflow tract VT have an overall benign prognosis. Commonly this is referred to as repetitive monomorphic VT. This tends to occur with activity and generally produce frequent episodes of ventricular ectopy and nonsustained VT on telemetry. His episode happened at rest and we have not seen a lot of ventricular ectopy on his telemetry. Therefore, I think this is less typical for RV outflow tract VT. His right ventricle appeared normal in the ventricular function was normal on echocardiography. A competing diagnosis would be AR VC. He had a structurally normal heart. He has no history of coronary disease. This makes it less likely that he has scar mediated VT at least from ischemia. He may have an infiltrative process and eventually a cardiac MRI would be indicated. At this point, I would discontinue his diltiazem in favor of beta-blockade. I would discontinue his the often indefinitely although its role in his arrhythmia is unclear. I think would be state resume his antidepressants. I discussed the need for evaluation for ischemic heart disease. Ideally he would undergo exercise testing but his hips would preclude a good evaluation. I think we can simply perform coronary angiography. In the absence of significant coronary disease I did recommend a ICD as secondary prevention for sustained ventricular tachycardia. History of Present Illness Reason for Consultation: Ventricular tachycardia Requesting Physician: Yvonne Attending Physician: Sameer Krishnamurthy MD History of Present Illness The patient is a 53-year-old gentleman without a known history of cardiac disease who presented with sustained ventricular tachycardia. Patient states that yesterday afternoon while at rest he began experience a sense of fluttering in the upper chest area. This was associated with a sense of dyspnea and left arm discomfort. He did not report associated chest discomfort or dizziness. Based on the nature of the symptoms he alerted the facility [facility] who recognized a tachycardia. In the medical department he was administered amiodarone without conversion of the tachycardia. Based on the persistent nature of his arrhythmia and symptoms [facility]. The patient states that he has not had similar symptoms in the past. He cannot recall symptoms of sustained palpitations or fluttering before. Generally spe aking he does not have symptoms of dizziness or lightheadedness. He did report frequent episodes of syncope in the past but he associates this with heavy alcohol use at the time. He has not had syncope recently. He is a very sedentary individual due to concerns over hip discomfort. 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 He has dyspnea on occasion and will occasionally use a inhaled beta agonist. This is infrequent. He has taken theophylline for an extended period of time. He cannot recall any family members with syncope. He cannot recall any family members with significant heart problems. No deaths at a young age. No unusual accidents at a young age. He has several siblings which appear to be healthy. His mother is currently alive and healthy. His father in his 70s likely of cardiovascular causes. Allergies Allergy/AdvReac Type Severity Reaction Status Date / Time No Known Allergies Allergy Unverified 09/11/18 19:24 Home Medications Home Medications Medication Instructions Recorded Confirmed Type acetaminophen [Tylenol Extra 500 mg PO TID PRN 09/11/18 09/11/18 History Strength] albuterol sulfate 2 puff INHALATION TID PRN 09/11/18 09/11/18 History diclofenac sodium 75 mg PO BID 09/11/18 09/11/18 History furosemide [Lasix] 20 mg PO DAILY 09/11/18 09/11/18 History lisinopril 5 mg PO DAILY 09/11/18 09/11/18 History mirtazapine 30 mg PO HS 09/11/18 09/11/18 History nortriptyline 75 mg PO BID 09/11/18 09/11/18 History pravastatin 80 mg PO HS 09/11/18 09/11/18 History quetiapine 200 mg PO HS 09/11/18 09/11/18 History theophylline 450 mg PO BID 09/11/18 09/11/18 History warfarin [Coumadin] 7.5 mg PO HS 09/11/18 09/11/18 History Patient History Medical History No known health problems Family History Other No significant family history Social History Preferred Language: Nauruan Communication Ability: Effective Entry Level Management Required: No Beliefs That Will Affect Care: None Current Living Situation: Other Current Living Situation Comment: [facility] inmate. Other Information That Helps Us Care for You: No Feels Safe at Home: Yes Safety Concerns: Feels Safe At This Time Smoking Status: Current every day smoker Tobacco Type: cigarettes and e- cigarettes Cigarettes Per Day: 10 Do You Dip or Chew Tobacco: No Hx Alcohol Use: No Hx Substance Use: No Review of Systems Review of Systems: All systems reviewed & are unremarkable except as noted in HPI & below In the past he did have some swelling of lower extremities which has been treated with daily Lasix. He denies any abdominal complaints currently. Does have some hip discomfort which waxes and wanes in severity. No orthopnea. Physical Exam Physical Exam: The patient is alert and oriented. Mood and affect appeared normal. He answered all questions appropriately. HEENT: Pupils are equal and reactive to light and accommodation. Extraocular movements are intact. The sclerae are anicteric. Neuro: Cranial nerves intact Neck: Patient's neck is supple. He has palpable carotid pulses bilaterally without bruits on auscultation. There is no evidence of jugular venous distention. The thyroid is not enlarged. Lungs: Clear to auscultation bilaterally. He has good air movement without use of accessory muscles. No rales wheezes or rhonchi. Cardiac: Heart demonstrates a regular rate and rhythm. Normal S1 and S2. No murmurs on examination. Pulses: The patient has palpable radial pulses bilaterally that are equal in intensity Extremities: There was no evidence of hypoperfusion. There is no cyanosis or clubbing. There is no edema. Skin: I did not appreciate any rashes on examination today. Multiple tattoos Results & Data Vital Signs (Past 12 Hours) Vital Signs Temp Pulse Pulse Resp BP Pulse Ox 09/12/18 07:06 36.9 C 78 19 147/99 H 97 09/12/18 03:13 36.5 C 85 20 144/91 H 96 09/11/18 23:17 36.8 C 81 20 110/82 98 09/11/18 22:20 87 Laboratory Results Abnormal Lab Results 09/11/18 09/11/18 09/11/18 17:45 17:45 17:45 WBC 15.68 H RBC 5.23 Hgb 16.8 Hct 48.4 MCV 92.5 MCH 32.1 MCHC 34.7 RDW Std Deviation 42.5 RDW Coeff of Jeb 12.5 Plt Count 241 MPV 10.8 H Immature Gran % (Auto) 0.6 Neut % (Auto) 65.6 Lymph % (Auto) 24.3 [place] % (Auto) 7.2 Eos % (Auto) 1.3 Baso % (Auto) 1.0 Immature Gran # (Auto) 0.09 H Neut # (Auto) 10.29 H Lymph # (Auto) 3.81 H [place] # (Auto) 1.13 H Eos # (Auto) 0.21 Baso # (Auto) 0.15 PT 30.9 H INR 3.3 H APTT 44.7 H PTT Ratio 1.6 Sodium 140 Potassium 4.0 Chloride 107 Carbon Dioxide 23 Anion Gap 9.0 BUN 17 Creatinine 1.76 H Est Cr Clr Drug Dosing 59.1 Est GFR ( Amer) 50.4 Est GFR (Non-Af Amer) 43.5 BUN/Creatinine Ratio 9.4 L Glucose 104 H Calcium 8.8 Magnesium 2.1 Total Bilirubin 0.5 AST 33 ALT 63 Alkaline Phosphatase 104 Troponin I 0.042 Total Protein 7.0 Albumin 3.9 Globulin 3.1 Albumin/Globulin Ratio 1.3 TSH 2.560 Specimen Hemolysis Urine Color Urine Appearance Urine pH Ur Specific Catherine Urine Protein Urine Glucose (UA) Urine Ketones Urine Blood Urine Nitrite Urine Bilirubin Urine Urobilinogen Ur Leukocyte Esterase Nasal Screen MRSA (PCR) Urine Opiates Screen Ur Methadone, Qual Urine Barbiturates Ur Phencyclidine (PCP) U Amphetamin/Meth Scrn MDMA (Ecstasy) Screen U Benzodiazepines Scrn Ur Cocaine Metabolite Theophylline U Marijuana (THC) Screen 09/11/18 09/11/18 09/11/18 17:45 19:48 19:48 WBC RBC Hgb Hct MCV MCH MCHC RDW Std Deviation RDW Coeff of Jeb Plt Count MPV Immature Gran % (Auto) Neut % (Auto) Lymph % (Auto) [place] % (Auto) Eos % (Auto) Baso % (Auto) Immature Gran # (Auto) Neut # (Auto) Lymph # (Auto) [place] # (Auto) Eos # (Auto) Baso # (Auto) PT INR APTT PTT Ratio Sodium Potassium Chloride Carbon Dioxide Anion Gap BUN Creatinine Est Cr Clr Drug Dosing Est GFR ( Amer) Est GFR (Non-Af Amer) BUN/Creatinine Ratio Glucose Calcium Magnesium Total Bilirubin AST ALT Alkaline Phosphatase Troponin I Total Protein Albumin Globulin Albumin/Globulin Ratio TSH Specimen Hemolysis Urine Color Yellow Urine Appearance Clear Urine pH 6.0 Ur Specific Catherine 1.009 Urine Protein Negative Urine Glucose (UA) Negative Urine Ketones Negative Urine Blood Negative Urine Nitrite Negative Urine Bilirubin Negative Urine Urobilinogen Negative Ur Leukocyte Esterase Negative Nasal Screen MRSA (PCR) Urine Opiates Screen Neg Ur Methadone, Qual Neg Urine Barbiturates Neg Ur Phencyclidine (PCP) Neg U Amphetamin/Meth Scrn Neg MDMA (Ecstasy) Screen Neg U Benzodiazepines Scrn Neg Ur Cocaine Metabolite Neg Theophylline 2 L U Marijuana (THC) Screen Neg 09/11/18 09/11/18 09/12/18 20:49 20:59 05:52 WBC RBC Hgb Hct MCV MCH MCHC RDW Std Deviation RDW Coeff of Jeb Plt Count MPV Immature Gran % (Auto) Neut % (Auto) Lymph % (Auto) [place] % (Auto) Eos % (Auto) Baso % (Auto) Immature Gran # (Auto) Neut # (Auto) Lymph # (Auto) [place] # (Auto) Eos # (Auto) Baso # (Auto) PT 24.6 H INR 2.6 H APTT PTT Ratio Sodium Potassium Chloride Carbon Dioxide Anion Gap BUN Creatinine Est Cr Clr Drug Dosing Est GFR ( Amer) Est GFR (Non-Af Amer) BUN/Creatinine Ratio Glucose Calcium Magnesium Total Bilirubin AST ALT Alkaline Phosphatase Troponin I 0.238 H* Total Protein Albumin Globulin Albumin/Globulin Ratio TSH Specimen Hemolysis Urine Color Urine Appearance Urine pH Ur Specific Catherine Urine Protein Urine Glucose (UA) Urine Ketones Urine Blood Urine Nitrite Urine Bilirubin Urine Urobilinogen Ur Leukocyte Esterase Nasal Screen MRSA (PCR) Negative Urine Opiates Screen Ur Methadone, Qual Urine Barbiturates Ur Phencyclidine (PCP) U Amphetamin/Meth Scrn MDMA (Ecstasy) Screen U Benzodiazepines Scrn Ur Cocaine Metabolite Theophylline U Marijuana (THC) Screen Diagnostic Findings Chest x-ray obtained at the time of admission to have any acute cardiopulmonary process. Echocardiogram performed this morning revealed preserved LV systolic function without wall motion abnormality. No valvular disease ECG Additional Comments: Initial EKG demonstrated wide complex tachycardia with a heart rate of 180 beats per minute. Subsequent EKG demonstrated normal sinus rhythm with a narrow QRS. Normal QT interval.
[2018-09-12] MEDS ORDERED: PHYTONADIONE 5 MG TAB PO STA (13:15)
[2018-09-12 13:23] LABS: Creatinine Clr Calc Pharmacy 73.1 ml/min; Est GFR (African American) 63.2; Est GFR (Non-African American) 54.5
--- NOTE | 2018-09-12 13:28 | Hospitalist Progress Note ---
Date of Service September 12, 2018 Assessment & Plan (1) Ventricular tachycardia: EKG on admission shows monomorphic VT. Was cardioverted in the ED. Echo on 09/12 shows EF 55-60%. - Seen by EP today; case discussed. Plan for cath and ICD tomorrow. (2) KIMBERLEE (acute kidney injury): Pt with likely acute KIMBERLEE; unsure of whether this is his baseline; can work to obtain halfway records. - Cr was 1.76 on admission; down to 1.45 on 09/12 - Trend Cr (3) COPD (chronic obstructive pulmonary disease): No PFTs. At breathing baseline. - Can restart theophylline on discharge (4) Hypertension: Mildly HTN. - Continue home meds (5) HLD (hyperlipidemia): - Continue statin (6) Depression: Will discuss psych meds with EP to avoid any that might cause VT. (7) Hx of thrombosis: Hold coumadin tonight given supratherapeutic INR of 3.3 -will work to reassess need through obtaining records (8) DVT prophylaxis: Reversing warfarin for procedures tomorrow Subjective Feels well this morning. No major issues. Review of Systems Review of Systems: All systems reviewed & are unremarkable except as noted in HPI & below Physical Exam Constitutional: WD/WN, vitals as above + obese Eyes: EOM intact bilaterally; no conjunctival abnormality ENMT: external ear and nose normal, oropharynx normal Neck: trachea midline, no thyromegaly normal visual inspection Respiratory: normal respiratory effort, lungs clear to auscultation no respiratory distress Cardiovascular: RRR, no murmur, no edema Gastrointestinal (Abdomen): Inspection/Auscultation: abdomen normal to inspection; abdomen not distended Musculoskeletal: no cyanosis or clubbing, extremities motor strength 5/5 Skin: no rashes, warm and dry Neurologic: moves all extremities and awake Psychiatric: Orientation: alert, oriented to person and cooperative Results & Data Vital Signs (Past 12 Hours) Vital Signs Temp Pulse Resp BP Pulse Ox 09/12/18 11:55 37 C 84 16 144/97 H 95 09/12/18 07:06 36.9 C 78 19 147/99 H 97 09/12/18 03:13 36.5 C 85 20 144/91 H 96 PG Care Time/CCT Total # of Minutes Spent Total Time Spent with Patient: Total time spent is greater than 50% in coordination of care (as documented) at patient's floor/unit and/or counseling patient:
[2018-09-12] MEDS ORDERED: LORazepam 1 MG TAB PO STA (16:08)
[2018-09-12] MEDS: PRAVASTATIN SOD 40 MG TAB PO SCH (16:29)
[2018-09-12] MEDS ORDERED: WARFARIN SOD 7.5 MG TAB PO SCH (21:00)
[2018-09-12] MEDS ORDERED: PRAVASTATIN SOD 40 MG TAB PO SCH (21:00)
[2018-09-12] MEDS: METOPROLOL TARTRATE 25 MG TAB PO SCH (21:52)
[2018-09-13] MEDS: SODIUM CHLORIDE 0.9% 500 ML IV SCH ×2 (04:22→11:45)
[2018-09-13 05:40] LABS: Hematocrit (blood only) 44.1 % (42-52); Hemoglobin 15.2 g/dL (14.0-18.0); Mean Corpuscular Hgb Conc 34.5 g/dL (32-36); Mean Corpuscular Volume 89.8 fL (80-100); Mean Platelet Volume 10.4 fL (7.4-10.4); Platelet Count 172 K/uL (130-400); RDW Coefficient of Variation 12.3 % (11.5-14.5); RDW Standard Deviation 40.4 fL (36.4-46.3); Red Blood Count 4.91 M/uL (4.7-6.1); White Blood Count 8.14 K/uL (4.8-10.8)
[2018-09-13 05:54] LABS: INR 1.3 (0.9-1.1); Prothrombin Time 13.5 Seconds (9.0-12.0)
[2018-09-13 06:12] LABS: BUN Creatinine Ratio 11.9 (10-20); Calcium 7.9 mg/dl (8.5-10.1); Creatinine Clr Calc Pharmacy 80.2 ml/min; Est GFR (African American) 70.7
[2018-09-13] MEDS ORDERED: GABAPENTIN 100 MG CAP PO ONE (08:00)
[2018-09-13] MEDS: METOPROLOL TARTRATE 25 MG TAB PO SCH ×2 (09:27→16:15)
[2018-09-13] MEDS: AMIODARONE / D5W 360 MG/200 ML BAG IV SCH (11:45)
--- NOTE | 2018-09-13 12:23 | Pre Anesthesia Assessment ---
Date of Service September 13, 2018 Pre Sedation Assessment Vital Signs Temp Pulse Pulse Resp BP Pulse Ox 09/13/18 10:55 36.9 C 69 19 162/97 H 96 09/13/18 04:38 36.9 C 76 18 144/84 H 93 09/13/18 00:00 84 09/12/18 23:46 36.6 C 74 17 147/99 H 95 09/12/18 19:43 36.9 C 83 20 151/95 H 96 09/12/18 15:45 37.3 C 75 18 154/92 H 98 Cardiovascular + regular rate Respiratory + respiratory effort normal Pre-Sedation Airway Assessment Smoking Status: Current every day smoker Hx Sleep Apnea: No Hx Difficult Intubation: No Short, Thick Neck: No Thyromental Distance: > or= 3.5 Finger Breadths Oral Cavity: + WNL Mallampati Class: III ASA: ASA3 Procedure Planning Contraindications for Sedation: none Current Medications Reviewed: Yes Notes The planned sedation has been discussed with the patient. Informed Consent was obtained. I have identified the patient, determined the appropriateness of sedation and have assessed the patient immediately prior to the procedure. All medicine(s) and interventions are by my order.
[2018-09-13] MEDS ORDERED: NITROGLYCERIN/D5W 100MCG/ML 20ML SYR ONE (13:05)
[2018-09-13] MEDS ORDERED: NiCARDipine HCL INJ 2.5 MG/ML 10 ML AMP ONE (13:05)
[2018-09-13] MEDS ORDERED: MIDAZOLAM HCL 1 MG/ML 2ML VIAL ONE ×2 (13:07→13:27)
[2018-09-13] MEDS ORDERED: fentaNYL citrate 100 MCG/2 ML VIAL ONE ×2 (13:07→13:54)
[2018-09-13] MEDS ORDERED: HEPARIN SOD (PORCINE) 1000 UNIT/ML 10 ML VIAL ONE (13:08)
[2018-09-13] MEDS ORDERED: CEFAZOLIN 250 MG/ML 1 GM VIAL ONE (13:33)
[2018-09-13] MEDS ORDERED: WATER, STERILE FOR INJ 10 ML VIAL ONE (13:34)
[2018-09-13] MEDS ORDERED: BUPIVACAINE 0.5 % 5 MG/1 ML PF 10ML VIAL ONE (13:40)
[2018-09-13] MEDS ORDERED: LIDOCAINE HCL 1% 20 ML VIAL ONE (13:40)
[2018-09-13] MEDS ORDERED: BACITRACIN INJ 50,000 UNIT VIAL ONE (13:40)
[2018-09-13] MEDS ORDERED: MIDAZOLAM HCL 5 MG/ML 1 ML VIAL ONE (13:54)
--- NOTE | 2018-09-13 14:00 | Hospitalist Progress Note ---
Date of Service September 13, 2018 Assessment & Plan (1) Ventricular tachycardia: EKG on admission showed monomorphic VT. Was cardioverted in the ED. Echo on 09/12 shows EF 55-60%. - Seen by EP today; case discussed. Plan for cath and ICD today with Dr. Hall. (2) KIMBERLEE (acute kidney injury): Pt with acute KIMBERLEE. - Cr was 1.76 on admission; down to 1.33 on 09/13 - Trend Cr (3) COPD (chronic obstructive pulmonary disease): No PFTs. At breathing baseline. - Can restart theophylline on discharge (4) Hypertension: Mildly HTN in setting of anxiety. - Continue home meds (5) HLD (hyperlipidemia): - Continue statin (6) Depression: Will discuss psych meds with EP to avoid any that might cause VT. (7) Hx of thrombosis: Holding warfarin at present for procedures. - Will restart as able (8) DVT prophylaxis: Holding chemoprophylaxis for procedures Subjective Doing well this morning. No shortness of breath, no chest pain. Some anxiety. Review of Systems Review of Systems: All systems reviewed & are unremarkable except as noted in HPI & below Physical Exam Constitutional: WD/WN, vitals as above + obese Eyes: EOM intact bilaterally; no conjunctival abnormality ENMT: external ear and nose normal, oropharynx normal Neck: trachea midline, no thyromegaly normal visual inspection Respiratory: normal respiratory effort, lungs clear to auscultation no respiratory distress Cardiovascular: RRR, no murmur, no edema Gastrointestinal (Abdomen): Inspection/Auscultation: abdomen normal to inspection; abdomen not distended Musculoskeletal: no cyanosis or clubbing, extremities motor strength 5/5 Skin: no rashes, warm and dry Neurologic: moves all extremities and awake Psychiatric: Orientation: alert, oriented to person and cooperative Results & Data Vital Signs (Past 12 Hours) Vital Signs Temp Pulse Resp BP Pulse Ox 09/13/18 10:55 36.9 C 69 19 162/97 H 96 09/13/18 04:38 36.9 C 76 18 144/84 H 93 PG Care Time/CCT Total # of Minutes Spent Total Time Spent with Patient: Total time spent is greater than 50% in coordination of care (as documented) at patient's floor/unit and/or counseling patient:
--- NOTE | 2018-09-13 14:31 | Procedure Note ---
Procedure Note Date of Service September 13, 2018 Note Procedure performed: Implantation of single-chamber ICD Staff hay buckler: Dandy Hall MD Indication: The patient is a 53-year-old gentleman with a history of sustained ventricular tachycardia. The patient presented to the hospital in ventricular tachycardia requiring cardioversion. There is no definite reversible cause. Therefore he is felt to be a good candidate for a single-chamber ICD as secondary prevention against sudden cardiac . Procedure in detail: The patient was informed of the risks benefits and alternatives to the intended procedure and she wished to proceed. The was taken to the electrophysiology suite in a fasting state. A preoperative antibiotic had been administered. The patient was monitored electrocardiographically throughout today's procedure and conscious sedation was administered per protocol. The left upper pectoral area is prepped and draped in usual sterile fashion. This area was anesthetized using subcutaneous administration of a xylocaine solution. An incision was made at this site and carried down to the prepectoralis fascia using sharp dissection. Electrocautery was also employed for dissection as well as for hemostasis. A device pocket was fashioned tissues above the pectoralis muscle. Subsequent to this maneuver the left axillary vein was accessed using modified Seldinger technique. Sheaths were placed over guidewires at this site and used to facilitate passage of the pacing leads to the respective chambers under fluoroscopic guidance. This included right atrial and right ventricular leads. Adequate sensing and threshold parameters were obtained prior to Active fixation of the leads to the endocardial surface. The proximal portion leads were then sutured the prepectoral fascia using nonabsorbable suture. The device pocket was irrigated with antibiotic solution. The leads were then attached to the device. The device and leads were then placed in the pocket and pocket was closed in 3 layers of absorbable suture. Steri-Strips and sterile dressing were applied. The device was tested noninvasively prior to conclusion the procedure. The patient tolerated procedure well there no immediate complications. Equipment used: New pulse generator: Rewriter [employer]. Model number: [id number] Right ventricular lead: Rewriter [employer]. Model number: 6935M serial number [id number] Measured data: Right ventricular lead: R waves measured 6.1 mV. Pacing threshold 0.8 V 0.4 ms with a pacing impedance of 760 ohms Impression: Successful implantation of single-chamber ICD Coding
--- NOTE | 2018-09-13 14:34 | Procedure Note ---
Procedure Note Date of Service September 13, 2018 Note Procedure performed: Left heart catheterization, coronary angiography Staff field crops harvest machine operator: Dandy Hall MD Indication: The patient is a 53-year-old gentleman who presented with sustained ventricular tachycardia. He had a mild elevation in his cardiac biomarkers. He was felt to require an evaluation of his coronaries prior to implantation of an ICD. Procedure in detail: The patient was informed of the risks benefits and alternatives to the intended procedure, he understood such and wished to proceed. He was taken to the cardiac catheterization suite in a fasting state. Conscious sedation was administered per protocol and the patient was monitored electrocardiographically throughout today's procedure. The right wrist area was prepped and draped in usual sterile fashion. This area was anesthetized using subcutaneous administration of a lidocaine solution. The right radial artery was then accessed using Seldinger technique, and a arterial sheath was placed at this site over a guidewire. The sheath was used to facilitate passage of the cardiac catheter for coronary angiography and left heart catheterization. Coronary angiogram was then obtained in multiple orthogonal views prior to removal of the catheter. At the conclusion of the procedure the sheath was removed and hemostasis was achieved at the access site using manual pressure. The patient tolerated procedure well, there were no immediate complications. Equipment used: 5 [place] 4, 5 Albanian JL 3.5 Findings: Opening aortic pressure: 131/87 mmHg Closing aortic pressure: 136/80 mmHg Left ventricular pressure: 136/0 Left ventricular end-diastolic pressure 5 mmHg Coronary angiography: Left main left main coronary artery was short but bifurcated normally into left anterior descending left circumflex artery. No significant disease in this vessel Left anterior descending: Left anterior descending artery was a large transapical vessel. Provided a large first diagonal branch and a diminutive D2 and D3. No significant angiographic disease in this vessel. Left circumflex: Left circumflex artery was a nondominant vessel. It produced a medium sized first OM system and a large second OM system. There is a very diminutive ongoing AV groove vessel there is no significant disease in this distribution Right coronary: Right coronary was a dominant vessel. There is no disease in the right coronary artery Impression: Normal coronary arteries without coronary artery disease Right dominant system No evidence of aortic stenosis Normal left ventricular end-diastolic pressures Coding
[2018-09-13] MEDS ORDERED: WARFARIN SOD 7.5 MG TAB PO SCH (16:25)
[2018-09-13] MEDS: SODIUM CHLORIDE 0.9% 1000ML 1,000 ML IV SCH (17:55)
[2018-09-13] MEDS: PRAVASTATIN SOD 40 MG TAB PO SCH (17:55)
[2018-09-13] MEDS: OXYCODONE HCL IR 5 MG TAB (IMMEDIATE RELEASE) PO PRN ×2 (18:24→22:26)
[2018-09-13] MEDS: ACETAMINOPHEN 325 MG TAB PO PRN (19:42)
[2018-09-13] MEDS: MIRTAZAPINE TAB 15 MG TAB PO SCH (19:43)
[2018-09-13] MEDS: CEFAZOLIN 2000MG 2,000 MG/15 ML SYR IV SCH (22:09)
[2018-09-14] MEDS: OXYCODONE HCL IR 5 MG TAB (IMMEDIATE RELEASE) PO PRN ×2 (02:25→06:36)
[2018-09-14] MEDS: SODIUM CHLORIDE 0.9% 1000ML 1,000 ML IV SCH (02:26)
[2018-09-14] MEDS: CEFAZOLIN 2000MG 2,000 MG/15 ML SYR IV SCH (05:35)
[2018-09-14 06:09] LABS: Prothrombin Time 10.6 Seconds (9.0-12.0)
--- NOTE | 2018-09-14 08:42 | XRay Report ---
XR chest 2V routine HISTORY: Pacemaker placement. EXACT TIME ORDERED Evaluate for pneumothorax and l COMPARISON: Chest 09/11/2018. FINDINGS: Interval left-sided single lead pacemaker/defibrillator. No pneumothorax. No pleural effusi ons. The heart remains top normal in size. No evidence for pulmonary edema. No new focal lung consoli dations to suggest pneumonia. IMPRESSION: Left-sided pacemaker. No pneumothorax. Electronically signed by: Hung Acuña M.D. 09/14/2018 8:41 AM
[2018-09-14] MEDS: METOPROLOL TARTRATE 25 MG TAB PO SCH (09:22)
--- NOTE | 2018-09-14 11:03 | Cardiology Progress Note ---
Date of Service September 14, 2018 Assessment & Plan (1) Ventricular tachycardia: Patient had normal coronary angiography yesterday. He has preserved LV systolic function. He did have sustained ventricular tachycardia and did undergo implantation of a single-chamber ICD yesterday. At this point I think he is safe for discharge. He should refrain from lifting left arm above her shoulder behind his neck for 6 weeks. Should keep the wound dry with Steri- Strips intact in till follow-up next week. I would agree with discharge on metoprolol succinate. I think he can resume his psychiatric medications. I do not believe he requires continued use of theophylline. Subjective This morning he did complain of some pain at the implant site. This appeared to improve once the pressure dressing was removed. He states that he felt slightly dizzy when ambulating for his x-ray earlier today. No dizziness at rest. No other symptoms of chest discomfort. Review of Systems Review of Systems: Per HPI Physical Exam Physical Exam: Device implant site without significant hematoma. He did have some ecchymoses extending into the axilla. This is fairly mild. No drainage from the incision. Results & Data Vital Signs (Past 12 Hours) Vital Signs Temp Pulse Pulse Resp BP BP Pulse Ox 09/14/18 09:20 87 09/14/18 08:00 37.0 C 81 20 147/93 H 95 09/14/18 03:44 37.1 C 83 17 161/93 H 95 09/14/18 01:01 Pulse Ox 09/14/18 09:20 09/14/18 08:00 09/14/18 03:44 09/14/18 01:01 87 L Diagnostic Findings Chest x-ray demonstrated good lead position without evidence of complication or pneumothorax I completed a device interrogation which revealed normal sensing and threshold parameters on the ventricular lead. I did change the sensing from integrated bipolar to true bipolar as the R-wave amplitude seemed adequate.
[2018-09-14] MEDS: ACETAMINOPHEN 325 MG TAB PO PRN (12:07)
--- NOTE | 2018-09-14 16:54 | Discharge Summary ---
Date of Service September 14, 2018 Admission HPI Per Admitting Provider Pt is a 53yo with a PMHx significant for HTN, HLD and COPD on theophylline who presents with sustained ventricular tachycardia. Mr. Zhong states that he was sitting talking to a friend at about 2:30pm when he felt this fluttery feeling in his chest. States he felt uncomfortable at that time but later developed chest tightness associated with difficulty breathing. He at that time alerted snf staff and he was found to be in ventricular tachycardia and transported to the ED. En route to the ED he received multiple doses of amiodarone which did not convert his arrythmia. He was cardioverted in the ED. ED Course: Cardioversion after administration of 150mg and 300mg amiodarone and 400ml fluid bolus prior to arrival. Fluids and amiodarone drip started in ED. 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 Also states that he was a heavy smoker of 2ppd for at least 20 years. No current use of alcohol or drugs, states his tox screens have been clean for the last 11 years while incarcerated. Meds: theophyline, lisinopril, diclofenac, pravastatin, lasix Principal Diagnosis Ventricular tachycardia Discharge Exam Constitutional WD/WN, vitals as above + obese Eyes EOM intact bilaterally; no conjunctival abnormality ENMT external ear and nose normal, oropharynx normal Neck trachea midline, no thyromegaly normal visual inspection Respiratory normal respiratory effort, lungs clear to auscultation no respiratory distress Cardiovascular RRR, no murmur, no edema Gastrointestinal (Abdomen) Inspection/Auscultation: abdomen normal to inspection; abdomen not distended Musculoskeletal no cyanosis or clubbing, extremities motor strength 5/5 Skin no rashes, warm and dry Neurologic moves all extremities and awake Psychiatric Orientation: alert, oriented to person and cooperative Discharge Data Allergies Allergy/AdvReac Type Severity Reaction Status Date / Time No Known Allergies Allergy Unverified 09/11/18 19:24 Consultations 09/11/18 19:16 ED Decision to Admit Stat 09/11/18 20:40 Consult Cardiology Routine Procedures Performed Operation Date: 09/13/18 12:00 Actual Procedures p Cath, Left with Cors and Vent - Hemant Hall MD s Cineradiography w/Routine Exam - Hemant Hall MD p ICD Insertion Single or Dual - Hemant Hall MD Ordered Studies 09/13/18 06:45 CL Cath Imgs for PACS use only Routine 09/13/18 13:45 EP Lab Images for PACS ONCE Hospital Course (1) Ventricular tachycardia: EKG on admission showed monomorphic VT. Was cardioverted in the ED. Echo on 09/12 shows EF 55-60%. - Seen by EP today; case discussed. - Clean cath - No cardiac disease. Got a single lead ICD placed. Started on metoprolol XL 25mg PO daily. Will see Dr. Hall in 4 weeks. (2) KIMBERLEE (acute kidney injury): Pt with acute KIMBERLEE. - Cr was 1.76 on admission; down to 1.33 on 09/13 - Trend Cr (3) COPD (chronic obstructive pulmonary disease): No PFTs. At breathing baseline. - Stopped theophylline on discharge (4) Hypertension: Mildly HTN in setting of anxiety. - Continue home meds (5) HLD (hyperlipidemia): - Continue statin (6) Depression: Will discuss psych meds with EP to avoid any that might cause VT. (7) Hx of thrombosis: Holding warfarin at present for procedures. - Will restart as able (8) DVT prophylaxis: Holding chemoprophylaxis for procedures Total Time Total Time Spent Total Time Spent (In Minutes): 45 Total Time Includes: Examination of the Patient and Communication With Other Providers Discharge Plan Discharge Items [facility] Disposition: [facility] Reason For Visit: V TACH Discharge Diagnosis: Ventricular tachycardia Discharge Goals: Decrease discomfort and Improve disease control Activity: Resume your previous activity Lifting: No more than 5 pounds Lifting Comment: No more than 5 lbs in the left arm for 6 weeks. Non-emergency contact: Primary Care Provider and Varnish Maker Call non-emergency contact if: you have any medication questions and your symptoms worsen Follow-up/Referrals: Hemant Hall MD [Physician] - (In 4 weeks.) Juliette Barnett MD [Primary Care Provider] - Diet: Regular Addtl Provider Instructions: Mr. Zhong was admitted for an episode of ventricular tachycardia requiring cardioversion. He got a left heart cath and an ICD on 09/13 without any coronary artery disease seen. The ICD was placed without a problem. He should now take metoprolol XL 25 mg per day and stop his theophylline. Follow up with Dr. Hall in 4 weeks or earlier if he has any discharges of his ICD. His warfarin was reversed for the procedures, so he will need an INR check in a few days to be sure he is back to therapeutic levels. Prescriptions: New metoprolol succinate 25 mg capsule,sprinkle,ER 24hr 25 mg PO DAILY Qty: 1 RF: 0 Continued warfarin [Coumadin] 7.5 mg Tablet 7.5 mg PO HS RF: 0 quetiapine 200 mg Tablet 200 mg PO HS RF: 0 pravastatin 80 mg Tablet 80 mg PO HS RF: 0 nortriptyline 75 mg Capsule 75 mg PO BID RF: 0 mirtazapine 30 mg Tablet 30 mg PO HS RF: 0 diclofenac sodium 75 mg Tablet,Delayed Release (Dr/Ec) 75 mg PO BID RF: 0 lisinopril 5 mg Tablet 5 mg PO DAILY RF: 0 furosemide [Lasix] 20 mg Tablet 20 mg PO DAILY RF: 0 albuterol sulfate 90 mcg/actuation Hfa Aerosol Inhaler 2 puff INHALATION TID PRN (Reason: Shortness Of Breath) RF: 0 acetaminophen [Tylenol Extra Strength] 500 mg Tablet 500 mg PO TID PRN (Reason: Pain) RF: 0 Discontinued theophylline 450 mg Tablet Extended Release 12 Hr 450 mg PO BID RF: 0 Stand-Alone Forms: [facility] Discharge Orders: Discharge Order (Routine); Ordered 09/14/18 Ordered By: Sameer Krishnamurthy Admission Data Admit Date/Time: 09/11/18 19:47 Attending Provider: Sameer Krishnamurthy Admit Provider: She Lewis Primary Care Provider: Juliette Barnett Other Providers: Hemant Hall ; Sameer Krishnamurthy ; Jennifer ALDANA Service: Telemetry Other Interventions: Discharge Summary Assessment (RN) Last Done: 09/14/18 11:53 DC Date/Time DO NOT enter until pt leaves facility: 09/14/18 13:23
== END 2018-09-14 13:23 | DRG 225 ==
LOC: ED 17:41 → SUATTDRO 19:47 → 2E 19:47 → 2S 09-12 15:22
PROC: EPB.ICD (2018-09-13 12:00)
DX: I10 Essential (primary) hypertension; I47.2 Ventricular tachycardia; J44.9 Chronic obstructive pulmonary disease, unspecified; F14.21 Cocaine dependence, in remission; Z86.718 Personal history of other venous thrombosis and embolism; N17.9 Acute kidney failure, unspecified; F17.210 Nicotine dependence, cigarettes, uncomplicated; E78.5 Hyperlipidemia, unspecified; F41.8 Other specified anxiety disorders; I95.9 Hypotension, unspecified; Z79.01 Long term (current) use of anticoagulants